=== PATIENT | female | born 1950 | race Caucasian/White ===

== ENCOUNTER → 2018-12-05 | Outpatient (CLI) | payer OTHER ==
[~2018-12-05] MED LIST: ALBU90OI INH; ALEN70 PO; OMEP20ER PO; PRED10 PO; WELLBUTRIN
== END ==
LOC: LAB EV 16:00 → LAB SHORT 16:00
DX: B35.1 Tinea unguium (principal)
CPT/HCPCS: 87102

== ENCOUNTER → 2024-06-12 | Outpatient (CLI) | payer OTHER ==
[2024-06-12 13:10] LABS: Source, Urine Clean Catch
[2024-06-12 14:33] LABS: Appearance, Urine Clear (Clear); Bilirubin, Urine Neg (Neg); Blood, Urine 5+ (Neg); Color, Urine Yellow (P-Yellow); Glucose Qualitative, Urine Neg (Neg); Ketones, Urine Neg (Neg); Leukocyte Esterase, Urine Neg (Neg); Nitrite, Urine Neg (Neg); Protein, Urine 1+ (Neg); Specific Gravity, Urine 1.015 (1.003-1.022); Urobilinogen, Urine NORM (Normal)
[2024-06-12 14:52] LABS: Bacteria Few /hpf; Red Blood Cells, Urine TNTC /hpf (0-2); Squamous Epithelial Cells Rare /hpf (Few); White Blood Cells, Urine 0-2 /hpf (0-5)
== END | disposition home or self-care (01) ==
LOC: LAB SHORT 13:08
PROVIDERS: Physician Assistant
DX: R30.0 Dysuria (principal)
CPT/HCPCS: 81001

== ENCOUNTER 2024-08-30 08:33 | Day surgery (SDC) | payer OTHER ==
[~2024-08-30] VITALS: Ht 167.6 cm; Wt 57.0 kg
[~2024-08-30 08:33] MED LIST changes: +Lactated Ringer's 1,000 ML IV ONE
[2024-08-30] MEDS ORDERED: CeFAZolin Sodium 2,000 MG VIAL ONE (09:13)
[2024-08-30] MEDS ORDERED: Lactated Ringer's 1,000 ML IV ONE ×2 (09:46→11:31)
[2024-08-30] MEDS ORDERED: MONT10T PO (09:59)
[2024-08-30] MEDS ORDERED: TOCO1000 (09:59)
[2024-08-30] MEDS ORDERED: ARNUITY ELLIP200 MCG (10:00)
[2024-08-30] MEDS ORDERED: ALBU90OI INH (10:01)
[2024-08-30] MEDS ORDERED: FentaNYL Citrate 50 MCG/ML 2 ML Injection ONE (10:45)
[2024-08-30] MEDS ORDERED: propofoL 20 ML IV ONE (10:45)
[2024-08-30] MEDS ORDERED: Phenylephrine HCl 100 MCG/ML-NS 10MLSYR (1MG/10ML) ONE (10:51)
[2024-08-30] MEDS ORDERED: Dexamethasone Sod Phos 10 MG/ML 1ML VIAL ONE (10:53)
[2024-08-30] MEDS ORDERED: Ondansetron HCl 2 MG / ML 2ML Vial ONE (10:53)
[2024-08-30] MEDS ORDERED: Glycopyrrolate 0.2 MG/ML 5ML VIAL ONE (10:54)
[2024-08-30] MEDS ORDERED: Phenylephrine HCl 10mg/ml 1 ml Vial ONE (11:01)
[2024-08-30] MEDS ORDERED: Bupivacaine 0.5% HCl 5 MG/ML 30MLVIAL INJ ONE (11:20)
[2024-08-30] MEDS ORDERED: Sugammadex Sodium 200 MG/2ML SDV (100 MG/ML) ONE (11:38)
--- NOTE | 2024-08-30 12:08 | NUR ---
08/30/24 1208 Yakelin Samuel PT SATS DROP TO LOW 80S INTERMITTENTLY, O2 BY NC AT 2L PLACED 1207
[2024-08-30 12:17] VITALS: BP 126/99
--- NOTE | 2024-08-30 12:19 | NUR ---
08/30/24 1219 Yakelin Samuel REPORT TO TOMMIE PIERRE, AND LAURA PIERRE.
== END 2024-08-30 13:12 | disposition home or self-care (01) ==
LOC: ORSCSDS 08:33
PROVIDERS: Surgery
PROC: 0YU60JZ Supplement Left Inguinal Region with Synthetic Substitute, Open Approach (ICD-10-PCS; principal; 2024-08-30 10:00)
DX: K40.90 Unilateral inguinal hernia, without obstruction or gangrene, not specified as recurrent (principal); J45.909 Unspecified asthma, uncomplicated; F32.A Depression, unspecified; Z85.3 Personal history of malignant neoplasm of breast; Z79.899 Other long term (current) drug therapy
CPT/HCPCS: C1781; J0690; J1100; J2371; J2405; J2704; J3010; J7120

== ENCOUNTER 2024-10-25 10:46 | Day surgery (SDC) | payer OTHER ==
[~2024-10-25] VITALS: Ht 167.6 cm; Wt 58.4 kg
[2024-10-25] VITALS (10 sets, daily range): BP systolic 101–153; BP diastolic 60–110
[~2024-10-25 10:46] MED LIST changes: +ARNUITY ELLIP200 MCG; +ARNUITY ELLIP200 MCG INH; +FLUT.05NI; +IPRATROPIUM BRO15 ML; -Lactated Ringer's 1,000 ML IV ONE; +MONT10T PO; +ONDA4ODT MM; +TOCO1000 PO; +XOPENEX HFA15 GM INH
--- NOTE | 2024-10-25 12:15 | NUR ---
Ambulatory in Day Surgery. History, Chart, Medications and Allergies reviewed before start of procedure. Lungs clear T/O to Auscultation. Patient confirms NPO status and agrees with scheduled surgery. Pre-Op teaching done. Pt verbalizes understanding. Patient States Post-Procedure ride home has been arranged.
--- NOTE | 2024-10-25 12:37 | NUR ---
10/25/24 123Chandni Rosa CONFIRMED AND REVIEWED H&P, MEDCICATIONS, ALLERGIES, MEDICAL HISTORY, RESPIRATORY HISTORY, VITAL SIGNS, 3-LEAD EKG, CONSENTS, AND PHYSICIAN ORDERS. PATIENT CONFIRMS NPO STATUS AND AGREES WITH SCHEDULED PROCEDURE. MONITOR INTACT WITH CONTINUOUS PULSE OXIMETRY, CAPNOGRAPHY, 3-LEAD EKG, INTERMITTENT BP. SUPPLEMENTAL O2 TO BE TITRATED THROUGHOUT PROCEDURE TO MAINTAIN O2 SATURATION ABOVE 90%. PATIENT DETERMINED TO BE ASA APPROPRIATE FOR PROPOFOL SEDATION PRIOR TO START OF PROCEDURE BY DR. BHATT
== END 2024-10-25 13:26 | disposition home or self-care (01) ==
LOC: ORSCMMR 10:46 → ORD 12:00 → ORSCMMR 12:00
PROVIDERS: Surgery
PROC: 0DB68ZX Excision of Stomach, Via Natural or Artificial Opening Endoscopic, Diagnostic (ICD-10-PCS; principal; 2024-10-25 12:00)
PROC: 0DB48ZX Excision of Esophagogastric Junction, Via Natural or Artificial Opening Endoscopic, Diagnostic (ICD-10-PCS; principal; 2024-10-25 12:00)
DX: K44.9 Diaphragmatic hernia without obstruction or gangrene (principal); K21.9 Gastro-esophageal reflux disease without esophagitis; K20.90 Esophagitis, unspecified without bleeding; R13.10 Dysphagia, unspecified; K29.70 Gastritis, unspecified, without bleeding; J45.909 Unspecified asthma, uncomplicated; F32.A Depression, unspecified; Z79.899 Other long term (current) drug therapy
CPT/HCPCS: 88305; 88312; 88342; J2704; J7120

== ENCOUNTER 2024-10-30 12:05 | Day surgery (SDC) | payer OTHER ==
[~2024-10-30] VITALS: Ht 167.6 cm; Wt 58.9 kg
[2024-10-30] VITALS (16 sets, daily range): BP systolic 120–167; BP diastolic 72–89
[~2024-10-30 12:05] MED LIST changes: +Dexamethasone Sod Phos 10 MG/ML 1ML VIAL ONE; +FentaNYL Citrate 50 MCG/ML 2 ML Injection ONE; +Rocuronium Bromide 10 MG/ML 5ML Injection IV ONE
[2024-10-30] MEDS ORDERED: FentaNYL Citrate 50 MCG/ML 2 ML Injection IV PRN ×2 (12:35→12:40)
[2024-10-30] MEDS ORDERED: HYDROmorphone HCl/Pf 1MG SYR IV PRN ×2 (12:35→18:15)
[2024-10-30] MEDS ORDERED: Ondansetron HCl 2 MG / ML 2ML Vial IV PRN ×2 (12:40→18:10)
[2024-10-30] MEDS ORDERED: Prochlorperazine Edisylate 10 mg Vial IV PRN ×2 (12:40→18:15)
[2024-10-30] MEDS ORDERED: Albuterol 2.5 MG/3 ML VIAL INH PRN (12:40)
[2024-10-30] MEDS ORDERED: Midazolam HCl 1MG / ML 2ML Vial IV PRN (12:40)
[2024-10-30] MEDS ORDERED: Heparin Sodium,Porcine 5,000 UNIT/0.5 ML SDV SC ONE (13:05)
[2024-10-30] MEDS ORDERED: Lidocaine 1%-Epineph 1:200000 30 ML SDV ONE (13:18)
[2024-10-30] MEDS ORDERED: Ropivacaine 0.5% HCL/PF 5 MG/ML 30ML Vial ONE (13:23)
[2024-10-30] MEDS ORDERED: Lidocaine HCl 4% 5 ML SDA ONE (13:23)
[2024-10-30] MEDS ORDERED: Ropivacaine 0.2% HCl/Pf 2 MG/ML 20ML Vial ONE (13:23)
[2024-10-30 14:24] LABS: Hematocrit 37.3 % (33.0-51.0); Hemoglobin 12.8 g/dL (11.5-16.0); Mean Corpuscular HGB Conc 34.3 g/dL (31.5-36.5); Mean Corpuscular Volume 94 fL (80-100); NRBC ABSOLUTE 0.00 K/mm3 (0.00-0.02); NRBC Auto 0.0 /100 WBC (0.0-0.2); Platelet Count 299 K/mm3 (150-400); RDW Coefficient Variation 12.0 % (11.7-14.2); RDW Standard Deviation 41.8 fL (35.1-46.3)
[2024-10-30] MEDS ORDERED: Ondansetron HCl 2 MG / ML 2ML Vial ONE ×2 (14:48→18:12)
[2024-10-30] MEDS ORDERED: Dexamethasone Sod Phos 10 MG/ML 1ML VIAL ONE (14:48)
[2024-10-30] MEDS ORDERED: Sugammadex Sodium 200 MG/2ML SDV (100 MG/ML) ONE (14:53)
[2024-10-30 15:09] LABS: Anion Gap 7.0 mmol/L (3-11); Blood Urea Nitrogen 14.0 mg/dL (8-24); CO2, Blood 30.0 mmol/L (21-32); Calcium, Blood 9.1 mg/dL (8.5-10.1); Chloride, Blood 108.0 mmol/L (98-108); Creatinine, Blood 0.68 mg/dL (0.40-1.00); Glucose, Blood 75.0 mg/dL (70-99); Potassium, Blood 3.5 mmol/L (3.5-5.5); Sodium, Blood 141.0 mmol/L (136-145)
[2024-10-30] MEDS ORDERED: Labetalol HCL 5 MG/ML 4ML Injection (Single Dose) ONE (15:20)
[2024-10-30] MEDS ORDERED: Rocuronium Bromide 10 MG/ML 5ML Injection IV ONE (16:17)
[2024-10-30] MEDS ORDERED: Ketorolac Tromethamine 15mg Vial IV PRN (18:20)
[2024-10-30] MEDS ORDERED: Prochlorperazine Edisylate 10 mg Vial ONE (18:24)
--- NOTE | 2024-10-30 18:58 | NUR ---
PT TO ROOM @ 5710. AXO3-4. VSS. SLID INTO BED. FLUIDS INFUSING. REPORTING NO PAIN AT THIS POINT. AWAITING SHIFT CHANGE NOW.
[2024-10-31 02:03] VITALS: BP 165/83
[2024-10-31 05:32] LABS: Hematocrit 37.2 % (33.0-51.0); Hemoglobin 12.7 g/dL (11.5-16.0)
--- NOTE | 2024-10-31 05:48 | NUR ---
PT DENIES PAIN. MEDICATED PER EMAR. MILD NAUSEA X1 LAST NOC AFTER WATCHING SHARK WEEK. MEDICATED WITH ZOFRAN IVP. RESTING QUIETLY. TOLERATING CL. BT'S HYPOACTIVE ON INITAL ASSESSMENT. 4 SMALL INCISIONS ACROSS UPPER ABD ALL CLOSED, GLUED WITH NO DRAINAGE. WILL GIVE REPORT TO ONCOMING RN TAKING PT.
[2024-10-31 07:08] VITALS: BP 142/86
[2024-10-31] MEDS ORDERED: Enoxaparin 40 MG/0.4 ML SYR SC SCH (09:00)
--- NOTE | 2024-10-31 12:27 | NUR ---
Pt. is awake and sitting in a chair when she welcomes my visit. 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 Facilitated a life review covering the years since she and her moved to the [facility]. Pt. verbalized that she had not seen her physician yet today. Matters of pat, belief and her health were considered at length. Pt. displayed a joyful and engaged spirit. Prayed with the Pt. Pt. verbalized gratitude for the spiritual care visit.
--- NOTE | 2024-10-31 14:03 | NUR ---
DISCHARGE TOLERATING FULL LQ DIET & PASSING SMALL AMOUNT OF GAS. ABD SOFT. AMBULATING IND IN ROOM & SAT UP IN CHAIR SINCE THIS AM. EXCITED FOR DC & ESCORTED OUT VIA WC TO [facility].
== END 2024-10-31 14:07 | disposition home or self-care (01) ==
LOC: ORSCMMR 12:05 → ORD 13:30 → SURS 18:46 → ORSCMMR 10-31 14:07
PROVIDERS: Surgery
PROC: 0BUT4JZ Supplement Diaphragm with Synthetic Substitute, Percutaneous Endoscopic Approach (ICD-10-PCS; principal; 2024-10-30 13:30)
PROC: 0DV44ZZ Restriction of Esophagogastric Junction, Percutaneous Endoscopic Approach (ICD-10-PCS; principal; 2024-10-30 13:30)
PROC: 8E0W4CZ Robotic Assisted Procedure of Trunk Region, Percutaneous Endoscopic Approach (ICD-10-PCS; principal; 2024-10-30 13:30)
DX: K44.9 Diaphragmatic hernia without obstruction or gangrene (principal); K21.00 Gastro-esophageal reflux disease with esophagitis, without bleeding; J45.909 Unspecified asthma, uncomplicated; Z87.891 Personal history of nicotine dependence; F32.A Depression, unspecified; Z85.3 Personal history of malignant neoplasm of breast; Z79.899 Other long term (current) drug therapy
CPT/HCPCS: 36415; 80048; 85014; 85018; 85027; A9270; C1781; J0780; J1100; J1644; J1650; J2003; J2250; J2405; J2704; J2795; J3010; J7120

== ENCOUNTER 2024-12-10 10:36 | Day surgery (SDC) | payer OTHER ==
[~2024-12-10] VITALS: Ht 167.6 cm; Wt 55.7 kg
[~2024-12-10 10:36] MED LIST changes: -Dexamethasone Sod Phos 10 MG/ML 1ML VIAL ONE; -FentaNYL Citrate 50 MCG/ML 2 ML Injection ONE; +Lidocaine HCl 2% 10 ML SDA ONE; +NS 500 ML IV ONE; -Rocuronium Bromide 10 MG/ML 5ML Injection IV ONE
[2024-12-10] MEDS ORDERED: CeFAZolin Sodium 2,000 MG VIAL ONE (10:43)
[2024-12-10] MEDS ORDERED: NS 500 ML IV ONE (11:01)
--- NOTE | 2024-12-10 11:14 | NUR ---
12/10/24 1114 Danielle Mathews 1110 TIME OUT DONE WITH & [facility] [place] 111[address] NUMBING [address]ONE WITH DR. OLIVER, 10 ML USED.
[2024-12-10] MEDS ORDERED: Midazolam HCl 1MG / ML 2ML Vial ONE (11:28)
[2024-12-10 12:18] VITALS: BP 108/67
== END 2024-12-10 12:15 | disposition home or self-care (01) ==
LOC: ORSCSDS 10:36
PROVIDERS: Orthopaedic Surgery
PROC: 0LB80ZZ Excision of Left Hand Tendon, Open Approach (ICD-10-PCS; principal; 2024-12-10 12:00)
PROC: 0PBV0ZZ Excision of Left Finger Phalanx, Open Approach (ICD-10-PCS; principal; 2024-12-10 12:00)
DX: M67.442 Ganglion, left hand (principal); M18.12 Unilateral primary osteoarthritis of first carpometacarpal joint, left hand; F32.A Depression, unspecified; J45.909 Unspecified asthma, uncomplicated; Z79.899 Other long term (current) drug therapy
CPT/HCPCS: 88304; J0690; J2003; J2250; J2704; J7040